=== PATIENT | female | born 1975 | race Caucasian/White ===

== ENCOUNTER 2018-01-30 18:28 | Emergency (ER) | payer OTHER ==
[2018-01-30] MEDS ORDERED: Lidocaine 1%* 5 ML VIAL INJ ONE (20:06)
--- NOTE | 2018-01-30 21:12 | UC ---
Laceration HPI - HPI Summary HPI Summary: 42-year-old female presents with multiple lacerations to the palmar aspect of her right hand. States she was holding a dish and accidentally hit it on the counter causing it to shatter. This occurred approximately 4 hours prior to arrival. Bleeding was controlled prior to arrival with direct pressure. States she believes her last tetanus was 2 years ago. - History Of Current Complaint Chief Complaint: UCLaceration Stated Complaint: HAND LAC Time Seen by Provider: 01/30/18 19:40 Hx Obtained From: Patient Hx Last Menstrual Period: now Laceration Location: Hand Mechanism Of Injury: Sharp Trauma Severity: Mild Pain Intensity: 2 Hands: 1 - Linear L-shaped laceration approximately 1 cm with visible adipose tissue. 2 - Superficial triangle-shaped avulsion <1 cm across. 3 - Superficial C-shaped flap laceration approximately 1 cm across. Related History: Dominant Hand Right - Allergies/Home Medications Allergies/Adverse Reactions: Allergies Allergy/AdvReac Type Severity Reaction Status Date / Time bacitracin Allergy Blisters Verified 01/30/18 18:44 [From Neosporin ([id number])] neomycin Allergy Blisters Verified 01/30/18 18:44 [From Neosporin ([id number])] polymyxin B Allergy Blisters Verified 01/30/18 18:44 [From Neosporin ([id number])] Home Medications: Home Medications NK [No Home Medications Reported] 01/30/18 [History Confirmed 01/30/18] PMH/Surg Hx/FS Hx/Imm Hx Previously Healthy: Yes - denies significant past medical history - Surgical History Surgical History: None - Family History Family History: Noncontributory - Social History Lives: With Family Alcohol Use: Occasionally Substance Use Type: None Smoking Status (MU): Never Smoked Tobacco - Immunization History Most Recent Tetanus Shot: unknown Vaccination Up to Date: Yes Review of Systems Constitutional: Negative Skin: Other - See history of present illness Motor: Negative Neurovascular: Negative Musculoskeletal: Negative Is Patient Immunocompromised?: No All Other Systems Reviewed And Are Negative: Yes Physical Exam Triage Information Reviewed: Yes Appearance: Well-Appearing, No Pain Distress, Well-Nourished Vital Signs: Initial Vital Signs Temp 98.0 F 01/30/18 18:40 Pulse 65 01/30/18 18:40 Resp 12 01/30/18 18:40 BP 113/63 01/30/18 18:40 Pulse Ox 98 01/30/18 18:40 Respiratory: Positive: No respiratory distress Cardiovascular: Positive: Pulses Normal, Brisk Capillary Refill Musculoskeletal Exam: Normal Neurological Exam: Normal Skin: Positive: significant lesion(s) - See diagram. No FB noted. Laceration Repair - Laceration Repair 1 Description: Linear - L-shaped laceration proximal palmar right pinky. See diagram. Laceration Size After Repair: Length (cm) - 1 cm Modified For Repair: Yes - excisional debridement of exposed subcutaneous tissue Anesthesia Used: 1.0% Lido - 1 ml Cleansing Completed Via Routine Prep: Yes Closure Material: Sutures Closure Method: Single Layer Suture Of: Skin Suture Type: Nylon - 3 interrupted sutures using 5-0 Ethilon 2 Description: Irregular - Superficial triangle-shaped avulsion. See diagram. : No Repair Necessary Cleansing Completed Via Routine Prep: Yes Irrigation With Pressure Irrigation Device: Yes 3 Description: Linear - C-shaped laceration palmar aspect thenar eminence. See diagram. Laceration Size After Repair: Length (cm) - 1 cm Modified For Repair: No Cleansing Completed Via Routine Prep: Yes Irrigation With Pressure Irrigation Device: Yes Closure Material: Skin Adhesive, SteriStrips - 2 1/8 inch Steri-Strips Laceration Course/Dx - Course/Dx Course Of Treatment: 42 year old female with lacerations to her right palmar hand after accidentally breaking a ceramic dish. The laceration to her proximal palmar pinky was closed using 3 interrupted sutures of 5-0 Ethilon. The small superficial avulsion to the palmar aspect of her hand immediately below the pink finger could not be brought into alignment therefore I elected to allow this to heal by tertiary intention. The flap laceration to the palmar ascpect of the thenar eminence was closed using skin adhesive and 2 1/8 inch Steri- Strips. Wound care and warning symptoms were reviewed with patient. She is to return in 7 days for suture removal. Verbalizes understanding and agrees with POC. - Differential Dx - Laceration/Wound Provider Diagnoses: Laceration proximal right pinky finger, superficial avulsion palmar aspect of right hand, superficial laceration palmar aspect thenar eminence right hand Discharge - Sign-Out/Discharge Documenting (check all that apply): Patient Departure All imaging exams completed and their final reports reviewed: No Studies - Discharge Plan Condition: Stable Disposition: HOME Patient Education Materials: Care For Your Stitches (ED), Finger Laceration (ED ), Skin Adhesive Care (ED) Referrals: June Worthy MD [Primary Care Provider] - Additional Instructions: The numbing medication used to repair your laceration of the pinky finger will wear off in about 2-3 hours. You may take over the counter pain medication such as acetaminophen (Tylenol) or ibuprofen (Advil, Motrin) according to directions as needed for pain. Leave the dressing that was applied to your hand in place for the next 24 hours. Do not get this wet. After 24 hours you may remove the dressing and shower and wash your hands as normal. Avoid submerging the wound(s) under water such with dishwashing, bathing, or swimming until wounds are fully healed. Gently clean the wound(s) with a mild soap and water at least once a day and cover wounds with a dressing. Change this at least once a day and any time it becomes soiled. Do not apply any lotions or ointments to the wound that was closed with skin adhesive as this may dissolve the adhesive. The Steri-Strips will slowly peel up from the ends. You may trim these ends but avoid pulling these off as it may open the wound back up. Return here in 7 days for suture removal. Watch for signs of infection including fever greater than 100.5 F, redness that spreads, swelling of the finger, pain that is not managed with pain medication, or any pus draining from the wound. Seek immediate medical attention should any of these occur. - Billing Disposition and Condition Condition: STABLE Disposition: Home
[2018-01-30 21:59] VITALS: BP 120/77
== END 2018-01-30 21:20 | disposition home or self-care (01) ==
LOC: UCEAST 18:28
DX: S61.411A Laceration without foreign body of right hand, initial encounter (principal); W25.XXXA Contact with sharp glass, initial encounter; Y93.89 Activity, other specified; Y92.9 Unspecified place or not applicable; Z88.3 Allergy status to other anti-infective agents
CPT/HCPCS: 12001; 99211; G0463